=== PATIENT | male | born 1940 | race Caucasian/White ===

== ENCOUNTER 2017-06-20 10:25 | Emergency (ER) | payer OTHER, MEDICARE ==
[~2017-06-20] VITALS: Ht 203.2 cm; Wt 88.7 kg
[~2017-06-20 10:25] MED LIST: ALEVE220 M2 PO; AMLODIPINE BESY10 MG PO; ASPIRIN325 MG PO; AVODART0.5 MG PO; BYSTOLIC10 MG PO; CALCIUM; CALCIUM 600 +1 EAC3 PO; COLACE100 MG PO; CYANOCOBALAM1000 MCG PO; CYCLOBENZAPRINE10 MG PO; DILAUDID4 MG PO; DYMISTA NASAL S23 GM BOTH NARES; FISH OIL 1,0001 EAC7 PO; FLOMAX0.4 MG PO; JANUVIA25 M1 PO; LIPITOR20 MG PO; LO-DOSE ASPIRIN81 M1 PO; LORTAB 5-325 M1 EACH PO; LUTEIN20 M1 PO; MAVIK2 MG PO; MAVIK4 MG PO; METFORMIN HCL1000 MG PO; NEXIUM20 MG PO; PLAVIX75 MG PO; SYMBICORT60 INHALAT IH; TERAZOSIN HCL5 MG PO; TRAMADOL HCL50 MG PO; VITAMIN B12 1000 MG; VITAMIN B12-FO1 EACH PO; ZOFRAN ODT8 MG PO; [UNRECOGNIZED DRUG - OTHER]; [UNRECOGNIZED DRUG - OTHER]
[2017-06-20 10:56] LABS: EOSINOPHIL (%) 1.7 % (0-5); EOSINOPHIL COUNT 0.1 K/uL (0-0.3); HEMATOCRIT 38.5 % (38.0-50.0); IMMATURE GRANULOCYTE (%) 0.5 % (0.0-0.7); INSTRUMENT ABS NEUTROPHIL CT 6.2 K/uL; LYMPHOCYTE COUNT 1.3 K/uL (1.0-2.8); MCHC 34.8 G/DL (30.0-36.0); MCV 89.1 FL (86-99); MONOCYTE (%) 7.5 % (3-12); MONOCYTE COUNT 0.6 K/uL (0-0.8); NEUTROPHIL (%) 74.6 % (45-76); NEUTROPHIL COUNT 6.2 K/uL (1.8-6.4); PLATELET COUNT 161 K/uL (156-360); RBC DIS.WIDTH-CV 12.9 % (11.8-14.6); RBC DIS.WIDTH-SD 42.5 % (39-53); RED BLOOD COUNT 4.32 M/uL (4.00-5.50); WHITE BLOOD COUNT 8.3 K/uL (4.1-10.2)
[2017-06-20 11:09] LABS: CHLORIDE 107 mEq/L (99-109); POTASSIUM 4.2 mEq/L (3.7-5.4); SODIUM 138 mEq/L (136-147)
[2017-06-20 11:10] LABS: MAGNESIUM 1.5 mg/dL (1.3-2.7)
[2017-06-20 11:12] LABS: GLUCOSE 167 mg/dL (70-99)
[2017-06-20 11:13] LABS: ANION GAP 13 MEQ/L (2-14)
[2017-06-20 11:14] LABS: TOTAL BILIRUBIN 0.5 mg/dL (0.0-1.0)
[2017-06-20 11:15] LABS: ALKALINE PHOSPHATASE 67 IU/L (3-129); TROP-I INTERPRETATION NEGATIVE; TROPONIN-I < 0.01 ng/mL (0.0-0.30)
[2017-06-20 11:16] LABS: GFR ESTIMATE (CALCULATED) > 59 mL/min/
[2017-06-20 11:17] LABS: UREA NITROGEN (BUN) 19 mg/dL (9-23)
[2017-06-20 11:19] LABS: CREATINE KINASE 80 IU/L (1-294); LIPASE 20 U/L (1.0-51.0); TOTAL CK 80 IU/L (1-294)
[2017-06-20 11:27] LABS: CK-MB 2.3 ng/mL (0.0-4.9)
[2017-06-20 13:56] LABS: TROP-I INTERPRETATION NEGATIVE; TROPONIN-I < 0.01 ng/mL (0.0-0.30)
[2017-06-20 18:50] VITALS: BP 138/64
== END 2017-06-20 18:51 | disposition home or self-care (01) ==
LOC: EME → EDBD 10:25 → EME 10:25
PROVIDERS: Emergency Medicine
DX: R07.9 Chest pain, unspecified (principal); R10.816 Epigastric abdominal tenderness; I10 Essential (primary) hypertension; E78.5 Hyperlipidemia, unspecified; E11.9 Type 2 diabetes mellitus without complications; N40.0 Benign prostatic hyperplasia without lower urinary tract symptoms; Z98.61 Coronary angioplasty status; Z79.84 Long term (current) use of oral hypoglycemic drugs; Z79.02 Long term (current) use of antithrombotics/antiplatelets; Z79.82 Long term (current) use of aspirin; Z87.891 Personal history of nicotine dependence; J44.9 Chronic obstructive pulmonary disease, unspecified
CPT/HCPCS: 71010; 71275; 74177; 76705; 80053; 82550; 82553; 83690; 83735; 84484; 85025; 93005; 99281; 99284